=== PATIENT | male | born 1965 | race African-American/Black ===

== ENCOUNTER 2024-02-11 12:05 | Emergency (ER) | payer SELFPAY ==
[~2024-02-11] VITALS: Ht 170.2 cm; Wt 78.0 kg
[2024-02-11 12:07] VITALS: TEMP 97.8; O2SAT 99
[2024-02-11] MEDS ORDERED: IBUP-2029 MT (13:04)
[2024-02-11 13:31] VITALS: BP 125/74; PULSE 85; RESP 18
[2024-02-11] MEDS: IBUPROFEN 600MG TABLET PO ONE (13:31)
== END 2024-02-11 13:33 | disposition home or self-care (01) ==
LOC: ER 12:05
DX: S93.401A Sprain of unspecified ligament of right ankle, initial encounter (principal); W22.8XXA Striking against or struck by other objects, initial encounter; Y93.89 Activity, other specified; Y92.89 Other specified places as the place of occurrence of the external cause; Y99.8 Other external cause status
CPT/HCPCS: 73610; 99283